=== PATIENT | male | born 2000 | race Caucasian/White ===

== ENCOUNTER 2023-10-11 11:48 | Emergency (ER) | payer OTHER ==
[2023-10-11 12:02] VITALS: BP 129/64; O2SAT 100
--- NOTE | 2023-10-11 15:56 | ED Physician Documentation ---
PD HPI SKIN - Stated complaint Stated Complaint: FINGER LAC - Chief complaint Chief Complaint: Laceration - Additional information Additional information: 23-year-old male presents emergency department today for right pinky laceration. Patient was at work and accidentally cut right pinky finger on a piece of metal. He is up-to-date with his tetanus shot he has full range of motion of his pinky finger it was not a smash injury that causes laceration. Bleeding is well-controlled he is not on any blood thinners. It is on the right pinky he is right-handed over the PIP joint. PD PAST MEDICAL HISTORY - Past Medical History Past Medical History: No - Past Surgical History Past Surgical History: No - Allergies Allergies/Adverse Reactions: Allergies Allergy/AdvReac Type Severity Reaction Status Date / Time No Known Drug Allergies Allergy Verified 10/11/23 12:01 - Social History Does the pt smoke?: No Smoking Status: Never smoker Does the pt drink ETOH?: No Does the pt have substance abuse?: No - Immunizations Immunizations are current?: Yes - POLST Patient has POLST: No PD ED PE NORMAL - Vitals Vital signs reviewed: Yes - General General: Alert and oriented X 3 - Derm Derm: Other (1.5cm laceration over right pink PIP joint, full ROM to right pink no pain with flexion or extension no weakness, CMS intact) - Extremities Extremities: No deformity - Psych Psych: Normal mood Results - Vitals Vitals: Vital Signs - 24 hr 10/11/23 11:53 Temperature 36.1 C L Heart Rate 65 Respiratory 17 Rate Blood Pressure 129/64 O2 Saturation 100 Oxygen O2 Source Room air Procedures - Laceration (location) right pinky Length in cm: 1.5 Wound type: Linear, Curved, Superficial, Clean Neurovascular status: Sensory intact, Motor intact Tendon involvement: Tendon intact Anesthesia: Lidocaine 1% Wound preparation: Irrigated copiously NS, Wound explored Skin layer closure: Size #-0 - enter number (4-0), Sutures - enter # (4) Other: Patient tolerated well, No complications, Neurovascular intact, Dressing applied, Tetanus UTD PD Medical Decision Making - ED course ED course: Wound inspected under direct bright light with good visualization. Area with linear laceration across soft tissue through adipose without exposure of muscle belly or tendon. No overt foreign body. Area hemostatic. Neurovascular exam congruent with above. Area extensively irrigated with sterile normal saline under pressure. Laceration repaired in simple fashion With a total of 4 sutures. (please see procedure note for further details). Patient tolerated procedure well and neurovascular exam intact and unchanged post repair with intact distal pulses and cap refill. Cautious return precautions discussed w/ full understanding. Wound care discussed. Prompt follow up with primary care physician discussed and return for suture removal in 12-14 days. Departure - Departure Disposition: 01 Home, Self Care Clinical Impression: Finger laceration Qualifiers: Encounter type: initial encounter Finger: little finger Damage to nail status: without damage Foreign body presence: without foreign body Laterality: right Qualified Code(s): S61.216A - Laceration without foreign body of right little finger without damage to nail, initial encounter Condition: Good Instructions: ED Laceration All Comments: Come back for any signs of infection which would include: Redness, swelling, drainage, increased pain, or fevers. You can wash it soap and water. Keep it covered and moist with bacitracin ointment which is available over the counter; avoid neosporin. Follow-up with your physician in 12-14 days for suture removal. Forms: PCP List Discharge Date/Time: 10/11/23 16:06
[2023-10-11] MEDS: BACITRACIN ZINC OINT 1 PACKET TOP STA (15:57)
== END 2023-10-11 16:06 | disposition home or self-care (01) ==
LOC: ED 11:48
DX: S61.216A Laceration without foreign body of right little finger without damage to nail, initial encounter (principal); W26.8XXA Contact with other sharp object(s), not elsewhere classified, initial encounter; Y92.89 Other specified places as the place of occurrence of the external cause; Y99.0 Civilian activity done for income or pay
CPT/HCPCS: 12001; 99282; 99283; A9270